=== PATIENT | male | born 1950 ===

== ENCOUNTER 2018-11-15 09:46 | Emergency (ER) | payer BC, MEDICARE ==
[2018-11-15 10:06] VITALS: TEMP 99; BMI 25.8
[2018-11-15 10:34] LABS: BASO % 0.4 % (0.0-2.0); EOS % 0.1 % (0.0-4.0); HEMOGLOBIN 14.9 g/dL (12.0-18.0); LYMPH # 1.4 K/uL (1.0-4.3); LYMPH % 12.3 % (20.0-40.0); MEAN CELL VOLUME 94.3 fL (80.0-94.0); MEAN CORPUSCULAR HEMOGLOBIN 31.3 pg (27.0-31.0); MEAN CORPUSCULAR HGB CONC 33.2 g/dL (33.0-37.0); MEAN PLATELET VOLUME 8.3 fL (7.2-11.7); MONO # 0.8 K/uL (0.0-0.8); MONO % 7.1 % (0.0-10.0); NEUT # 9.4 K/uL (1.8-7.0); NEUT % 80.1 % (50.0-75.0); RBC 4.77 Mil/uL (4.40-5.90); RED CELL DISTRIBUTION WIDTH 13.1 % (11.5-14.5); WHITE BLOOD COUNT 11.8 K/uL (4.8-10.8)
[2018-11-15 10:44] LABS: INR 1.1; PROTHROMBIN TIME 12.1 SECONDS (9.7-12.2)
[2018-11-15 11:02] LABS: ALB/GLOB RATIO 1.5 (1.0-2.1); ALBUMIN 4.8 g/dL (3.5-5.0); ALT/SGPT 10 U/L (21-72); AST/SGOT 40 U/L (17-59); BLOOD UREA NITROGEN 20 mg/dL (9-20); CALCIUM 10.2 mg/dl (8.6-10.4); GFR NON-AFRICAN AMERICAN > 60
--- NOTE | 2018-11-15 11:26 | C.PDOC ---
History Of Present Illness 68 y/o male, with PMHx of diabetes, hypertension, and hyperlipidemia, comes in complaining of intermittent palpitations since yesterday afternoon with occasional chest pressure. Patient states that yesterday he went to his primary doctors office and had local injection of his foot of cortisone. Reports the symptoms started in the afternoon after the visit. Patient states he feels better today and went to see his PMD who recommended to come to ER. Time Seen by Provider: 11/15/18 10:04 Chief Complaint (Nursing): Palpitations History Per: Patient History/Exam Limitations: no limitations Onset/Duration Of Symptoms: Days Current Symptoms Are (Timing): Still Present Past Medical History Reviewed: Historical Data, Nursing Documentation, Vital Signs Vital Signs: Last Vital Signs Temp 99 F 11/15/18 09:58 Pulse 64 11/15/18 11:00 Resp 13 11/15/18 11:00 BP 131/62 11/15/18 11:00 Pulse Ox 95 11/15/18 11:00 - Medical History PMH: Diabetes, HTN, Hyperlipidemia Denies: Chronic Kidney Disease - [facility] Procedures COLONOSCOPY (04/23/14) ESOPHAGOGASTRODUODENOSCOPY [EGD] W/CLOSED BIOPSY (03/05/14) Family History: States: No Known Family Hx - Social History Hx Alcohol Use: No Hx Substance Use: No Review Of Systems Constitutional: Negative for: Fever, Chills, Sweats Cardiovascular: Positive for: Chest Pain (Chest Pressure), Palpitations Respiratory: Negative for: Shortness of Breath Gastrointestinal: Negative for: Nausea, Vomiting Skin: Negative for: Rash Neurological: Negative for: Weakness, Numbness, Dizziness Physical Exam - Physical Exam Appears: Non-toxic, No Acute Distress Skin: Warm, Dry Head: Atraumatic, Normacephalic Eye(s): bilateral: Normal Inspection Oral Mucosa: Moist Neck: Supple Cardiovascular: Rhythm Regular, No Murmur Respiratory: Normal Breath Sounds, No Rales, No Rhonchi, No Wheezing Extremity: No Pedal Edema Extremity: Bilateral: Atraumatic, Normal ROM Neurological/Psych: Oriented x3, Normal Speech ED Course And Treatment - Laboratory Results Result Diagrams: 11/15/18 10:31 11/15/18 10:31 Lab Results: PT 12.1 SECONDS (9.7-12.2) 11/15/18 10:31 INR 1.1 03/30/19 10:31 APTT 28 SECONDS (21-34) 11/15/18 10:31 Total Bilirubin 0.5 mg/dL (0.2-1.3) 11/15/18 10:31 AST 40 U/L (17-59) 11/15/18 10:31 ALT 10 U/L (21-72) L 11/15/18 10:31 Alkaline Phosphatase 61 U/L (38-126) 11/15/18 10:31 Total Protein 7.9 g/dL (6.3-8.3) 11/15/18 10:31 Albumin 4.8 g/dL (3.5-5.0) 11/15/18 10:31 Globulin 3.1 gm/dL (2.2-3.9) 11/15/18 10:31 Albumin/Globulin Ratio 1.5 (1.0-2.1) 11/15/18 10:31 ECG: Interpreted By Me, Viewed By Me ECG Rhythm: Sinus Rhythm Interpretation Of ECG: Normal axis. No acute ST/T wave changes. LVH. Rate From EC O2 Sat by Pulse Oximetry: 95 (RA) Pulse Ox Interpretation: Normal - Other Rad CXR X-Ray: Read By Radiologist Interpretation: FINDINGS: LUNGS: Clear. PLEURA: No pneumothorax or pleural fluid seen. CARDIOVASCULAR: No aortic atherosclerotic calcification present. Normal. OSSEOUS STRUCTURES: No significant abnormalities. VISUALIZED UPPER ABDOMEN: Normal. OTHER FINDINGS: None. IMPRESSION: No active disease. Progress Note: EKG and chest XR ordered. Labs sent. Disposition Counseled Patient/Family Regarding: Studies Performed, Diagnosis, Need For Followup - Disposition Referrals: Chris Muhammad MD [Medical Doctor] - Disposition: AGAINST MEDICAL ADVICE Disposition Time: 12:50 Condition: STABLE Additional Instructions: FOLLOW UP WITH YOUR DOCTOR IN 1-2 DAYS RETURN TO ER IMMEDIATELY IF YOUR SYMPTOMS RETURN OR WORSEN YOU ARE SIGNING OUT AGAINST MEDICAL ADVICE - YOU RISK WORSENING OF YOUR CURRENT CONDITION, HEART ATTACK, POSSIBLE EVEN ! Instructions: Chest Pain (DC), Palpitations (DC), Leaving Against Medical Advice Forms: [employer] ([place]), (AMA) Informed Refusal Print Language: BELARUSIAN - Clinical Impression Clinical Impression: Palpitations, Chest pain, Left against medical advice - Scribe Statement Irais Lizarraga Provider Attestation: All medical record entries made by the Scribe were at my direction and personally dictated by me. I have reviewed the chart and agree that the record accurately reflects my personal performance of the history, physical exam, medical decision making, and the department course for this patient. I have also personally directed, reviewed, and agree with the discharge instructions and disposition.
[2018-11-15 11:27] VITALS: O2SAT 95
[2018-11-15 11:56] LABS: CK-MB 3.15 ng/mL (0.0-3.38)
[2018-11-15 12:57] VITALS: BP 115/63; PULSE 60; RESP 14
--- NOTE | 2018-11-15 16:16 | RAD ---
Date of service: 11/15/2018 PROCEDURE: CHEST RADIOGRAPH, 1 VIEW HISTORY: CP, PALPITATIONS COMPARISON: No prior similar study available for comparison FINDINGS: LUNGS: Clear. PLEURA: No pneumothorax or pleural fluid seen. CARDIOVASCULAR: No aortic atherosclerotic calcification present. Normal. OSSEOUS STRUCTURES: No significant abnormalities. VISUALIZED UPPER ABDOMEN: Normal. OTHER FINDINGS: None. IMPRESSION: No active disease.
== END 2018-11-15 13:04 | disposition left against medical advice (07) ==
LOC: C.ER 09:46
DX: R00.2 Palpitations (principal); R07.89 Other chest pain; I10 Essential (primary) hypertension; E78.5 Hyperlipidemia, unspecified; E11.9 Type 2 diabetes mellitus without complications